=== PATIENT | female | born 1975 ===

== ENCOUNTER 2017-11-01 18:41 | Emergency (ER) | payer OTHER ==
[~2017-11-01] VITALS: Ht 157.5 cm; Wt 127.0 kg
[~2017-11-01 18:41] MED LIST: CONCERTA36 MG/BOTT; LEVAQUIN500 MG; MOTRIN800 MG PO; NORFLEX100MG PO; PRENATAL1 TAB; SINGULAIR10 MG; ZYRTEC5 MG
== END 2017-11-01 22:40 | disposition home or self-care (01) ==
LOC: ER 18:41
DX: J11.1 Influenza due to unidentified influenza virus with other respiratory manifestations (principal); B34.9 Viral infection, unspecified